=== PATIENT | female | born 1985 | race Caucasian/White ===

== ENCOUNTER 2017-04-11 09:45 | Emergency (ER) | payer MEDICAID, OTHER ==
[2017-04-11 09:50] VITALS: BP 116/55; PULSE 84; RESP 20; TEMP 98.2; O2SAT 100
[2017-04-11 09:51] VITALS: BMI 56.3
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
--- NOTE | 2017-04-11 11:45 | RAD ---
PROCEDURE: Right Hand Radiographs. HISTORY: Pain COMPARISON: None. FINDINGS: BONES: Bone alignment and mineralization are normal. No acute fracture. JOINTS: Normal. SOFT TISSUES: Normal. OTHER FINDINGS: None. IMPRESSION: Normal examination.
== END 2017-04-11 10:54 | disposition home or self-care (01) ==
LOC: H.ER 09:45
DX: S63.91XA Sprain of unspecified part of right wrist and hand, initial encounter (principal); V03.10XA Pedestrian on foot injured in collision with car, pick-up truck or van in traffic accident, initial encounter; Y92.410 Unspecified street and highway as the place of occurrence of the external cause; Y99.0 Civilian activity done for income or pay